=== PATIENT | male | born 1945 | race African-American/Black ===

== ENCOUNTER 2018-12-20 10:15 | Outpatient (RCR) | payer MEDICARE | END 2018-12-22 | LOC: ST 10:15 | PROVIDERS: ATTEND Emergency Medicine | DX: R47.1 Dysarthria and anarthria (principal); F17.200 Nicotine dependence, unspecified, uncomplicated | CPT/HCPCS: 92523 ==

== ENCOUNTER → 2019-01-11 | Outpatient (CLI) | payer MEDICARE ==
--- NOTE | 2019-01-12 11:15 | Diagnostic Imaging Report ---
EXAM: Modified barium swallow with Speech Pathologist INDICATION: ^[id number] ^[id number] ^DYSPHAGIA COMPARISON: None available. RADIATION DOSE: Fluoroscopy Time: 2.5 min Dose (Kerma) Area Product: 1.5 Gycm2 Air Kerma (AK) value has been reviewed. It is below the limits set by the Radiation Protocol Committee (RPC) committee. FINDINGS: See impression IMPRESSION: No evidence of penetration or aspiration. Please see speech pathology report for detailed description and recommendations. Signed by: Dr. Carlos Mascorro M.D. on 01/12/2019 11:11 AM
== END ==
LOC: DX 12:12
PROVIDERS: ATTEND Emergency Medicine
DX: I69.891 Dysphagia following other cerebrovascular disease (principal); R13.11 Dysphagia, oral phase
CPT/HCPCS: 74230

== ENCOUNTER 2019-01-18 09:45 | Outpatient (RCR) | payer MEDICARE ==
--- NOTE | 2018-12-26 11:13 | NUR ---
ST NOTE: PT called and cx apt, will phone pt to reschedule next session.
--- NOTE | 2019-01-16 09:41 | NUR ---
ST NOTE: Pt called in sick, next apt 01/18/19.
[~2019-01-18 09:45] MED LIST: BELLADONNA/OPIUM 30 MG SUPP RC ONE
--- NOTE | 2019-01-18 15:00 | NUR ---
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 Pt has participated in three sessions of therapy. Number of sessions limited due to change of insurance. Short term goals and progress follow: 1.Pt will perform diodochokinetic exercises 25 times in 15 secondspt completed an average of 6 sequences in 15 seconds (average of 6 last session). 2.Pt will participate in speech motor exercises with 90% accuracy pt completed motor speech exercises levels 1-4, which included CV, CVCV, and VCV syllables, voiced and unvoiced consonants, with 70% accuracy. Pt completed level 5 exercises, which included 2 syllable VCCV, voiced and unvoiced consonants, with 50% accuracy (pt unable to progress past level 3 last session). 3.Pt will use dysarthria strategies in session and at home with independencereviewed SLEW strategies. Pt required minimal cueing to use strategies in structured conversation. 4.Pt will complete oral motor exercises to improve labial and lingual strength and coordination with independencept reported completion of home exercise program. New exercises for labial rounding and strength of buccinators introduced. 5.Pt will complete divergent and convergent tasks with 80% accuracypt completed divergent tasks with 60% accuracy. 6.Pt will read words and phrases with simple and complex blends with 95% accuracynot addressed. 7.Pt will participate in continued dxt/txnot addressed. Impression: Pts deficits persist, but with practice improvements are noted in oral motor coordination. Oral strength appears to be improving. Pt completed all tasks eagerly and showed high level of motivation to improve his communication skills. Education completed as indicated, with patient indicating understanding. Recommendation: Recommend continued speech and language therapy 2x/week X 4 weeks. Blow Down Operator Goal: Maximize functional communication skills for home and social environments. Short Term Goals: Continue goals 1-7 as listed above. Ella Ramos M.A. [facility]-PRINCIPAL CONSULTING ENGINEER Date of Session: 01/18/19 Speech and Language Therapy X 65 minutes VALE NOMS Motor Speech Level 4
== END 2019-01-22 ==
LOC: PT 09:45
PROVIDERS: ATTEND Emergency Medicine
DX: R47.1 Dysarthria and anarthria (principal); F17.200 Nicotine dependence, unspecified, uncomplicated

== ENCOUNTER 2019-02-08 09:33 | Outpatient (RCR) | payer MEDICARE ==
--- NOTE | 2019-02-03 11:37 | NUR ---
ST Note: Pt cancelled appointment due to lack of transportation. He plans to attend his next scheduled therapy appointment.
[2019-02-15] MEDS ORDERED: BENICAR20 MG PO (10:21)
[2019-02-15] MEDS ORDERED: CYPROHEPTADINE H4 MG (10:21)
[2019-02-15] MEDS ORDERED: ABILIFY5 MG PO (10:21)
[2019-02-16] MEDS ORDERED: PRAVASTATIN SOD40 MG PO (11:00)
[2019-02-16] MEDS ORDERED: NORVASC10 MG PO (11:00)
[2019-02-17] MEDS ORDERED: COREG12.5 MG PO (13:30)
[2019-02-17] MEDS ORDERED: ASPIRIN EC81 MG PO (13:31)
== END 2019-02-21 ==
LOC: PT 09:33
PROVIDERS: ATTEND Emergency Medicine
DX: R47.1 Dysarthria and anarthria (principal); F17.200 Nicotine dependence, unspecified, uncomplicated

== ENCOUNTER 2019-02-15 09:50 | Inpatient (IN) | payer MEDICARE ==
[2019-02-15] VITALS (30 sets, daily range): BP systolic 147–239; BP diastolic 81–121
[~2019-02-15] VITALS: Ht 175.3 cm; Wt 65.1 kg
--- OUTSIDE RECORDS SUMMARY | 2019-02-15 09:52 | XMS REPORT ---
[facility] Address Unknown Phone Unavailable Care Team Providers Care Processor Solid Propellant Name Role Phone ASHLEY MONSON Unavailable Unavailable Problems This patient has no known problems. Allergies, Adverse Reactions, Alerts This patient has no known allergies or adverse reactions. Medications This patient has no known medications. Results Test Description Test Time Test Comments Text Results Atomic Results Result Comments MODIFIED BA. SWALLOW 2019-01-12 11:11:00 [place] [address] Patient Name: FARHAN GONZALEZ MR #: [id number] : 1945 Age/Sex: 73/M Req #: [id number] [facility] Physician: Ordered by: ASHLEY MONSON MD Report #: [id number] Location: DX Room/Bed: Procedure: [id number] DX/MODIFIED BA. SWALLOW Exam Date: 01/11/19 Exam Time: 1145 REPORT STATUS: Signed EXAM: Modified barium swallow with Speech Pathologist INDICATION: [id number] DYSPHAGIA COMPARISON: None available. RADIATION DOSE: Fluoroscopy Time: 2.5 min Dose (Kerma) Area Product: 1.5 Gycm2 Air Kerma (AK) value has been reviewed. It is below the limits set by the Radiation Protocol Committee (RPC) committee. FINDINGS: See impression IMPRESSION: No evidence of penetration or aspiration. Please see speech pathology report for detailed description and recommendations. Signed by: Dr. Liam Rodrigez M.D. on 01/12/2019 11:11 AM Dictated By: LIAM RODRIGEZ MD 1111 Transcribed By: COSME on 01/12/19 1111 COPY TO: ASHLEY MONSON MD
--- NOTE | 2019-02-15 10:15 | NUR ---
MANUAL BP 232/128 LUE.
[2019-02-15] MEDS ORDERED: CYPROHEPTADINE H4 MG (10:21)
[2019-02-15] MEDS ORDERED: BENICAR20 MG PO (10:21)
[2019-02-15] MEDS ORDERED: ABILIFY5 MG PO (10:21)
[2019-02-15] MEDS ORDERED: SODIUM CHLORIDE 0.9% 1000ML 1,000 ML IV STA (10:23)
[2019-02-15] MEDS ORDERED: NITROGLYCERIN 2% OINT 1 GM PKT ONE (10:43)
[2019-02-15] MEDS ORDERED: NITROGLYCERIN 2% OINT 1 GM PKT TOP ONE (10:45)
[2019-02-15] MEDS ORDERED: ASPIRIN 325 MG TAB PO ONE (10:45)
--- NOTE | 2019-02-15 10:50 | NUR ---
DR. DUGGAN AT BEDSIDE FOR PT EVAL AT THIS TIME.
[2019-02-15 10:55] LABS: BASOPHILS # (AUTO) 0.1 (0.0-0.1); EOSINOPHILS # (AUTO) 0.3 (0.0-0.4); EOSINOPHILS % 4.2 % (0.0-6.0); HEMATOCRIT 42.2 % (38.2-49.6); HEMOGLOBIN 14.1 g/dL (14.0-18.0); LYMPHOCYTES % 32.7 % (18.0-39.1); MEAN CORPUSCULAR HEMOGLOBIN 31.2 pg (28-32); MEAN CORPUSCULAR HGB CONC 33.4 g/dL (31-35); MEAN CORPUSCULAR VOLUME 93.4 fL (81-99); MONOCYTES # (AUTO) 0.8 (0.2-0.8); MONOCYTES % 13.9 % (4.4-11.3); NEUTROPHILS # (AUTO) 2.9 (2.1-6.9); NEUTROPHILS % 47.9 % (38.7-80.0); PLATELET COUNT 202 x10e3/uL (140-360); RED BLOOD COUNT 4.52 x10e6/uL (4.3-5.7); RED CELL DISTRIBUTION WIDTH 14.8 % (11.7-14.4)
--- NOTE | 2019-02-15 11:00 | NUR ---
DR. DUGGAN AT BEDSIDE EXPLAINING RISKS AND BENEFITS OF PERMANENT PACEMAKER PLACEMENT, PT VERBALIZING UNDERSTANDING. PT ALLOWED TIME FOR QUESTIONS AND DR. DUGGAN RESPONSIVE TO PT. RECEIVED ORDERS TO OBTAIN INFORMED CONSENT.
[2019-02-15 11:03] LABS: INR 0.94; PROTHROMBIN TIME 13.1 seconds (11.9-14.5)
[2019-02-15 11:10] LABS: ALBUMIN 3.2 g/dL (3.5-5.0); ALBUMIN/GLOBULIN RATIO 0.7 (0.8-2.0); ANION GAP 17.3 mmol/L (8-16); CALCIUM 9.9 mg/dL (8.4-10.2); CREATININE, SERUM 1.48 mg/dL (0.72-1.25); MAGNESIUM 1.2 MG/DL (1.3-2.1); POTASSIUM 4.3 mmol/L (3.5-5.1)
--- NOTE | 2019-02-15 11:11 | NUR ---
INFORMED CONSENT FOR INSERTION OF PERMANENT PACEMAKER OBTAINED AT THIS TIME, PT ACKNOWLEDGES NEED FOR PROCEDURE. WILL CONTINUE TO MONITOR.
[2019-02-15] MEDS ORDERED: ASPIRIN 81 MG CHEW TAB PO ONE (11:15)
[2019-02-15 11:17] LABS: CREATINE KINASE MB 2.7 ng/mL (0-5.0)
[2019-02-15] MEDS ORDERED: BACITRACIN 50,000 UNIT VIAL ONE (11:33)
[2019-02-15] MEDS ORDERED: VANCOMYCIN 1GM/NS 250 ML 250 ML ONE (11:33)
[2019-02-15] MEDS ORDERED: LIDOCAINE 1% W/EPINEPHRINE 20 ML VIAL ONE (11:33)
[2019-02-15] MEDS ORDERED: SODIUM CHLORIDE 0.9% 1000ML 3,000 ML ONE (11:34)
--- NOTE | 2019-02-15 11:52 | Diagnostic Imaging Report ---
EXAMINATION: CHEST SINGLE (PORTABLE) INDICATION: Bradycardia. COMPARISON: None FINDINGS: TUBES and LINES: None. LUNGS: Hyperinflated lungs. There is no evidence of pneumonia or pulmonary edema. PLEURA: No pleural effusion or pneumothorax. HEART AND MEDIASTINUM: The cardiomediastinal silhouette is unremarkable. There are atherosclerotic calcifications within the aorta. BONES AND SOFT TISSUES: No acute osseous abnormality. UPPER ABDOMEN: No free air under the diaphragm. IMPRESSION: No acute radiographic abnormality. Hyperinflated lungs, which may represent emphysema. Signed by: Dr. Bassam Hernandez MD on 02/15/2019 11:48 AM
--- NOTE | 2019-02-15 12:15 | NUR ---
IMAGING ASSISTANT STAFF AT BEDSIDE AT THIS TIME.
[2019-02-15 12:25] LABS: CLARITY,URINE CLEAR (CLEAR); COLOR,URINE YELLOW (YELLOW)
[2019-02-15 12:26] LABS: BILIRUBIN,URINE NEGATIVE (NEGATIVE); KETONES,URINE NEGATIVE (NEGATIVE); LEUKOCYTE ESTERASE ,URINE NEGATIVE (NEGATIVE); NITRITE,URINE NEGATIVE (NEGATIVE); PROTEIN,URINE DIPSTICK 3+ (NEGATIVE); URINE UROBILINOGEN 0.2 mg/dL (0.2 - 1)
[2019-02-15 12:27] LABS: BACTERIA,URINE FEW /HPF; EPITHELIAL CELLS,URINE FEW /LPF; WBC,URINE (MAN) 0-5 /HPF (0-5)
[2019-02-15] MEDS ORDERED: MIDAZOLAM HCL 2 MG/2 ML VIAL ONE (12:56)
[2019-02-15] MEDS ORDERED: FENTANYL CITRATE/PF 100MCG/2 ML INJ ONE (12:56)
[2019-02-15] MEDS ORDERED: HYDRALAZINE HCL 20 MG/ML VIAL ONE (13:19)
--- NOTE | 2019-02-15 13:35 | NUR ---
informed dr tomlinson of BP of 236/106 post hyrdralazine. Pt to ICU for blood pressure management post PPM - cgf
--- NOTE | 2019-02-15 13:55 | NUR ---
Report provided to liam GALLEGOS, review of procedural findings and medications given. Patient drowsy, easily aroused. maintains airway and room air saturations of 94-96%. No gross issues of pain, pallor or dysrhythmia. IV site patent with Vancomycin abx infusing 166ml per dial-flow to left forearm 20g. RIJ 18g flushed and presents healthy. patient hemodynamically stable with hemostasis left upper chest dressing CDI w/o s/s of bleeding, pressure dressing present. patient transferred to [facility] assist w/o incident. Overall skin integrity remains intact. left arm immobilizer applied to left arm transported to ICU 193 on monitor - cgf procedure: ST Reg dual lead PPM left upper chest w/ venogram Sheath puller: NA Meds Given Intra-Procedure Sedatives Versed - 2 mg Fentanyl - 50 mcg Fluids Input - 200 ml Output - dtv Contrast Isovue 370 - 10ml Other Meds Vancomycin 1gram IVPB
[2019-02-15] MEDS: AMLODIPINE BESYLATE 5 MG TAB PO SCH (15:48)
[2019-02-15] MEDS: HYDRALAZINE HCL 20 MG/ML VIAL IV PRN ×2 (15:49→21:53)
[2019-02-15] MEDS ORDERED: OLMESARTAN MEDOXOMIL 5 MG TABLET PO SCH (16:00)
[2019-02-15] MEDS ORDERED: PNEUMOCOCCAL VACCINE POLYVALENT 23 MCG/0.5 ML VIAL IM ONE (16:30)
[2019-02-15] MEDS: OLMESARTAN 20 MG TAB PO SCH (16:38)
--- NOTE | 2019-02-15 19:22 | History and Physical ---
REASON FOR CONSULTATION: Complete heart block. HISTORY: A 73-year-old gentleman, poor historian, today he claimed that he is not feeling well for three weeks with chest tightness, chest pressure, dizziness, weakness, and his legs cannot hold him. He went to see his doctor. His blood pressure was systolic 200. His heart rate in the 30s. His EKG showed complete heart block. He refused to come by ambulance. He drove himself here. He was seen by ER physician. Urgent cardiac consultation is obtained. I visited with the patient who is really a poor historian. He has known severe hypertension of many years duration. He said he had a stroke last year, which affected his right side. He does have asymmetry of his face. He had reasonable recovery. He lives by himself. He is a heavy smoker and alcohol drinker. He takes his medication as described. He is followed by Dr. Curry, and he is on several medications for his mood disorder. He does not like to give more information. Regarding his chest pain, it seems to be atypical, going on for three weeks, very vague. It is more pressure and weakness and tightness. There is some orthopnea but no paroxysmal nocturnal dyspnea. There is no syncope or presyncope. REVIEW OF SYSTEMS: CARDIAC: As per above. PULMONARY: No cough. No hemoptysis. GI: No hematemesis. No melena. : No hematuria, no dysuria. MUSCULOSKELETAL: Aches and pain, weakness of the legs. NEUROLOGICAL: Status post prior CVA. SOCIAL HISTORY: He lives by himself. He is a smoker, and he is alcohol drinker. He does not have any family support. HOME MEDICATIONS: Benicar 20 mg a day. Abilify 5 mg twice a day. Cyproheptadine 4 mg at bedtime. ALLERGIES: NONE. FAMILY HISTORY: Noncontributory. PHYSICAL EXAMINATION: VITAL SIGNS: Height of 6 feet 2 inches, weight of 150 pounds, blood pressure 200/100, heart rate of 30, respiratory rate of 20. HEENT: Asymmetry of the face is noted. NECK: No elevation of jugular venous pulsation. CHEST: Bilateral coarse crackles. HEART: Normal first and second heart sounds. Ejection systolic murmur. ABDOMEN: Soft. There is good bowel sounds. No organomegaly. EXTREMITIES: No signs, no clubbing, no edema NEUROLOGIC: Symmetry of the face. Subparagraph. LABORATORY DATA: BUN is elevated at 28, creatinine of 1.5. Sodium of 134, potassium of 4.3, hemoglobin of 14.1, hematocrit 42%, white blood cell count of 6000. EKG showing complete heart block with a rate in the 30s. IMPRESSION AND PLAN: 1. Advanced complete heart block. 2. Severe hypertension. 3. Prior cerebrovascular accident. 4. Some form of psychiatric or mood problem. We discussed the case with the patient, explaining for him that he need a pacemaker, and explained the procedure. Dr. Rao and Dr. Pham will be doing it shortly. We will get an echocardiogram. We will check his thyroid function tests, which are not set as checked. His cardiac enzymes are normal. We will follow patient's progression with you and would like to thank you for you the kind referral. Thank you very much for dictation. The patient attended the emergency room, evaluated, total care time of more than 70 minutes, plus patient will be seen later on for followup. MD PAUL Malin/REESE /[id number]
[2019-02-15 20:55] LABS: CREATINE KINASE MB 2.9 ng/mL (0-5.0)
--- NOTE | 2019-02-15 21:00 | NUR ---
Called Dr. Stef Kingsley regarding patient's BP 206/93. No new orders at this time. Patient has had elevated BP for several months and Dr. Kingsley is aware and does not want to drop his BP too quickly. Order obtained to change attending to Dr. Cruz.
[2019-02-15] MEDS ORDERED: GUAIFENESIN 200 MG/10 ML UDC PO PRN (22:00)
[2019-02-16] VITALS (36 sets, daily range): BP systolic 130–199; BP diastolic 78–142
--- NOTE | 2019-02-16 00:58 | History and Physical ---
PRIMARY CARE DOCTOR: Dr. Perfecto Curry. CHIEF COMPLAINT: Bradycardia. HISTORY OF PRESENT ILLNESS: Mr. Villeda is a pleasant 73-year-old gentleman with bradycardia. The patient basically denies any dizziness. He denies any shortness of breath. No changes in his ability to exert recently. He went in for routine appointment, he says to see his primary care doctor. The patient was noted to have bradycardia. It was relegated as an incidental finding. Heart rate was 32 beats per minute. The patient was seen to have a third-degree AV block on EKG. Pulse oximeter was 94%. Blood pressure furthermore was 200s range. At this point, it was elected to send him to emergency room for critical assessment. He came to the emergency room, where our EKGs at [facility] confirm continue presence of third-degree heart block. The patient was rapidly assessed by Cardiology and was referred to EP Service. Due to the complete heart block, a permanent pacemaker implant was performed. The patient had this performed in the left chest wall area. He was then sent to the ICU for further assessment. Tip Inserter, Dr. Kingsley. EP doctor is Dr. Langford. PAST MEDICAL HISTORY: Hypertension, CVA in 2018 with expressive aphasia. MEDICATIONS: Medication list per the chart record. ALLERGIES: NO LISTED DRUG ALLERGY. SOCIAL HISTORY: No alcohol. No drugs. He smokes tobacco from age 20 to 73, one pack per day. Active. 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 FAMILY HISTORY: Noncontributory to this. REVIEW OF SYSTEMS: Cannot get reliably, as the patient has expressive aphasia and limited speech. OBJECTIVE: VITAL SIGNS: Afebrile, vital signs noted per the chart record. GENERAL: In no acute distress, alert, calm in bed. HEENT: Normocephalic, atraumatic. NECK: Supple. Throat midline. LUNGS: Bilateral air entry, decreased breath sounds mildly, but mostly unremarkable. CARDIOVASCULAR: S1, S2. No murmurs, rubs, or gallops. ABDOMINAL EXAM: Soft, nontender. EXTREMITIES: No clubbing, no cyanosis. There is no edema. INTEGUMENT: No rash. No purpura. LABORATORY DATA: 4.3 potassium, 20 BUN, 1.5 creatinine. 6 white count, 42 hematocrit, and 202 platelets. LFTs noted unremarkable per record. Coagulation panel is unremarkable. IMPRESSION AND PLAN: 1. Third-degree heart block, emergent. 2. Postoperative #2 stay, status post emergent permanent pacemaker implantation. 3. Hypertension with urgency. 4. History of cerebrovascular accident. 5. Secondary debility including aphasia and mild left-sided weakness. 6. Chronic smoker, active. 7. Mild creatinine elevation, possible chronic kidney disease versus acute kidney injury versus other. 8. Repeat electrolytes and creatinine tomorrow. Consideration to ensure the kidneys are stabilized. Slow improvement of blood pressure to control. Continue postoperative #2 assessment per jig mill operator. Minocycline and pain medicine as needed for postoperative care. Continue initial followup in ICU for now. Tomorrow, we intend to have him mobilized and ensure he is able to walk easily despite having the new pacemaker in the left shoulder. Consideration for discharge can be made if he stabilizes further and is able to mobilize outside of the hospital. Thank you very much, Dr. Curry for allowing me to participate in care of Mr. Villeda. Do not hesitate to contact me if I can help in any way. MD GARO Zamarripa/REESE /[id number]
[2019-02-16 05:15] LABS: BASOPHILS % 0.5 % (0.0-1.0); EOSINOPHILS # (AUTO) 0.1 (0.0-0.4); EOSINOPHILS % 0.9 % (0.0-6.0); HEMATOCRIT 44.8 % (38.2-49.6); LYMPHOCYTES # (AUTO) 1.2 (1.0-3.2); LYMPHOCYTES % 14.9 % (18.0-39.1); MEAN CORPUSCULAR HEMOGLOBIN 30.9 pg (28-32); MEAN CORPUSCULAR HGB CONC 33.5 g/dL (31-35); MEAN CORPUSCULAR VOLUME 92.4 fL (81-99); MONOCYTES # (AUTO) 0.7 (0.2-0.8); MONOCYTES % 8.5 % (4.4-11.3); NEUTROPHILS # (AUTO) 5.8 (2.1-6.9); NEUTROPHILS % 74.8 % (38.7-80.0); PLATELET COUNT 196 x10e3/uL (140-360); RED BLOOD COUNT 4.85 x10e6/uL (4.3-5.7); RED CELL DISTRIBUTION WIDTH 15.1 % (11.7-14.4)
[2019-02-16 05:39] LABS: CREATINE KINASE MB 3.8 ng/mL (0-5.0)
[2019-02-16 05:59] LABS: ALANINE AMINOTRANSFERASE 12 IU/L (0-55); ALBUMIN 3.2 g/dL (3.5-5.0); ALBUMIN/GLOBULIN RATIO 0.7 (0.8-2.0); ALKALINE PHOSPHATASE 87 IU/L (40-150); BLOOD UREA NITROGEN 18 mg/dL (7-26); BUN/CREATININE RATIO 15 (6-25); CALCIUM 9.9 mg/dL (8.4-10.2); CARBON DIOXIDE 23 mmol/L (22-29); CHLORIDE 95 mmol/L (98-107); CHOL/HDL RATIO 2.5 (3.9-4.7); CHOLESTEROL 216 MD/DL (0-199); CREATININE, SERUM 1.22 mg/dL (0.72-1.25); EST GLOMERULAR FILTRATION RATE > 60 ML/MIN (60-); GLUCOSE 79 mg/dL (74-118); HDL CHOLESTEROL 85 MG/DL (40-60); LDL CHOLESTEROL 114 MG/DL (60-130); SODIUM 130 mmol/L (136-145); TRIGLYCERIDES 83 MG/DL (0-149)
--- NOTE | 2019-02-16 08:15 | NUR ---
ASSESSMENT: No spiritual/emotional concerns expressed Creel Clerk responded to consult request. Pt states he is "okay" and is complimentary of staff. Intervention: Provided pastoral presence and hospitality. Provided information on how to reach director of special education, if needed. Outcome: Pt expressed appreciation for visit. Followed up with RN. Will follow as able. TARAH HYDE Creel Clerk Spiritual Care Department O: [phone] Pager: [phone] ([phone] number calling from)
[2019-02-16] MEDS: OLMESARTAN 20 MG TAB PO SCH (08:55)
[2019-02-16] MEDS: AMLODIPINE BESYLATE 5 MG TAB PO SCH ×2 (08:55→16:15)
[2019-02-16] MEDS: CYPROHEPTADINE HCL 4 MG TAB PO SCH ×2 (08:56→17:12)
[2019-02-16] MEDS ORDERED: ASPIRIN 81 MG ENTERIC COATED PO SCH (09:00)
[2019-02-16] MEDS ORDERED: NORVASC10 MG PO (11:00)
[2019-02-16] MEDS ORDERED: PRAVASTATIN SOD40 MG PO (11:00)
--- NOTE | 2019-02-16 13:36 | Progress Note ---
DATE: 02/16/2019 Pulmonary Medicine Progress Note SUBJECTIVE: Mr. Villeda was seen and examined at bedside. He continues to have improvement. Reportedly, the pacemaker device was interrogated with good result. He had more cardiovascular evaluation with ultrasonography. The patient still has not walked yet. He is tolerating his diet so far. REVIEW OF SYSTEMS: No bleeding, no headaches. OBJECTIVE: VITAL SIGNS: Afebrile, vital signs noted per chart record. GENERAL: In no acute distress, alert and calm. HEENT: Normocephalic, atraumatic. NECK: Supple. Throat midline. LUNGS: Bilateral air entry with small rhonchi. CARDIOVASCULAR: S1, S2. No murmurs, rubs, or gallops. ABDOMEN: Soft, nontender. EXTREMITIES: No clubbing, no cyanosis. There is no edema. INTEGUMENT: No rash, no purpura. LABS: BUN 18, creatinine 0.2. BNP 603. Magnesium level is 1.3. Potassium 4.0, sodium 130. IMPRESSION: 1. Third-degree heart block. 2. Postoperative state, status post pacemaker insertion. 3. Hypertension with emergency with chest pain, now resolved. 4. History of cerebrovascular accident, expressive aphasia and mild left-sided hemiparesis. PLAN: Get PT to walk the patient. We appreciate device interrogation. We will let him leave the ICU. Continue blood pressure medicines for slow decrease this is better. Follow up echo and carotid results. If he continues to do well, he may be possibly for discharge tomorrow. MD GARO Zamarripa/REESE /[id number]
--- NOTE | 2019-02-16 13:53 | NUR ---
Patient transferred to unit from ICU. Patient arrived via wheelchair. Patient is post op day 1 pacemaker placement. Dressing to left chest wall clean and dry. Left arm in a sling. No c/o pain. No s/s of distress noted
[2019-02-16 14:03] LABS: CREATINE KINASE MB 3.4 ng/mL (0-5.0)
--- NOTE | 2019-02-16 14:18 | NUR ---
PATIENT TRANSFERRED TO ROOM 107 IN WHEELCHAIR WITH ALL OF HIS BELONGINGS. NURSING REPORT GIVEN TO AUGUSTINE GALLEGOS. PATIENT ALERT, DENIES PAIN. VSS.
[2019-02-16] MEDS ORDERED: PNEUMOCOCCAL VACCINE POLYVALENT 23 MCG/0.5 ML VIAL ONE (16:10)
[2019-02-16] MEDS: ASPIRIN 81 MG ENTERIC COATED PO SCH (16:15)
[2019-02-16] MEDS: HYDRALAZINE HCL 20 MG/ML VIAL IV PRN ×2 (16:15→20:55)
--- NOTE | 2019-02-16 17:02 | NUR ---
Patient received pneumonia vaccine at this time. immunization given in right deltoid
--- NOTE | 2019-02-17 00:20 | NUR ---
SPOKE TO DR. DUGGAN REGARDING PT C/O UNABLE TO SLEEP. NEW ORDER RCV FOR BENADRYL PRN PO.
[2019-02-17] MEDS ORDERED: DIPHENHYDRAMINE HCL 25 MG CAP PO PRN (00:30)
[2019-02-17 00:50] VITALS: BP 157/87
[2019-02-17 04:33] VITALS: BP 117/71
[2019-02-17 08:23] VITALS: BP 184/82
--- NOTE | 2019-02-17 09:15 | NUR ---
MD DUGGAN INTO SEE PT, DISCUSSED POC
--- NOTE | 2019-02-17 09:16 | NUR ---
CASE MANAGEMENT ASSESSMENT Gas Engine Operator Generators to bedside to discuss plan of care with patient/family. CM/SW role and care transitions discussed. Anticipated discharge plan discussed along with duration of care. CM/SW discussed patients right to make decisions in care. CM/SW work hours given. Patient lives: alone Admit/Transfer: thru ED Hospital/ER visits since last admit: 0 POA/Emergency contact: sister Eda Genao [phone] Current/Previous Home Health: none PCP/Follow-up Care: Dr. Curry - PCP; CM advised pt to follow up with one of his MDs within a week of discharge. Pt verbalized understanding Current/Previous DME: none Medications (referring to index hospitalization or the first time you were in the hospital) a. Were changes made in your medications when you were in the hospital on [date of index hospitalization]? n/a b. Did you understand the changes? n/a c. Were you able to obtain your new medications right away? n/a d. Were you able to take your medications like the doctor wanted you to? n/a e. Did the hospital give you an accurate, easy to understand list of medications when you left? n/a Scale of 1-10 how comfortable does patient feel with disease management in outpatient settin Other Services: states he gets transportation thru insurance Employment Status: retired Areas of Concerns: complete heart block, HTN, recent PM placement Referral Needs: may benefit from home health Education Needs: medical management, compliance, post PM instructions IMM/WYMAN given and signed (if applicable): IMM letter delivered and explained to pt. He verbalized understanding. Signed copy placed in chart. Copy to pt. Goal for discharge: home CM/SW left business card at the bedside with contact information. Name and number was also written on the patients whiteboard. Patient verbalized understanding of discussion. CM will follow-up with ongoing discharge and transition of care needs.
[2019-02-17] MEDS ORDERED: CARVEDILOL 12.5 MG TAB PO SCH (09:30)
[2019-02-17] MEDS: CYPROHEPTADINE HCL 4 MG TAB PO SCH (09:45)
[2019-02-17] MEDS: AMLODIPINE BESYLATE 5 MG TAB PO SCH (09:45)
[2019-02-17] MEDS: OLMESARTAN 20 MG TAB PO SCH (09:45)
[2019-02-17] MEDS: ASPIRIN 81 MG ENTERIC COATED PO SCH (09:45)
[2019-02-17] MEDS ORDERED: COREG12.5 MG PO (13:30)
[2019-02-17] MEDS ORDERED: ASPIRIN EC81 MG PO (13:31)
--- NOTE | 2019-02-17 13:58 | NUR ---
Nutrition Screen Note RD Recommendation for Physician: -Continue current diet. -Consider STATISTICAL FINANCIAL ANALYST recommendation; pt has had modified barium swallow in the past d/t dysphasia. -Ensure Enlive BID Plan of Care: RD following, monitoring for tolerance and adequacy Nutrition reason for involvement: Nutrition Risk Trigger-MST score of 2 Primary Diagnose(s): ACS PMH: Hypertension, CVA in 2018 with expressive aphasia. Ht: 69 in Wt: 143 lb BMI: 21.1kg/m2 IBW: [address] Assessment: (02/17) 73 YOM admitted for ACS. Pt denied a decreased intake of food at home as well as any unintentional weight loss that he has seen. Pt reported he would like to gain weight and stated he consumes Ensure at home, recommended this for pt in the hospital. Spoke to nurse about supplement initiation. There are no past weights in EMR. Within EMR- pt has had modified barium swallow (01/11) in the past-recommend STATISTICAL FINANCIAL ANALYST consult to ensure pt is consuming the correct texture. Pt did deny chewing or swallowing issues when asked. Pt has no c/o N/V/C/D. Pt had no other concerns or questions. Chart reviewed. Labs and meds reviewed. Will continue to monitor. Current Diet: cardiac Malnutrition Evaluation (02/17) The patient does not meet criteria for a specified degree of malnutrition at this time. Will re-evaluate at follow-up as appropriate. Diet Education Needs Assessment: Diet education not indicated. Nutrition Care Level: mod Signed: Nicolle Anderson RD, LD
--- NOTE | 2019-02-17 14:00 | NUR ---
MD DUPREE INTO SEE PT, DISCUSSED POC,
--- NOTE | 2019-02-17 16:53 | NUR ---
DISCHARGE INSTRUCTIONS REVIEWED WITH PT, PT VERBALIZED UNDERSTANDING, WHEELED OF UNIT FOR LYFT PICKUP PER [employer]IST[employer] COMPANY TO TRANSFER PT HOME, NO CHANGE IN CONDITION
[2019-02-17 16:57] VITALS: BP 169/90
--- NOTE | 2019-02-17 23:07 | Progress Note ---
DATE: 02/17/2019 Pulmonary Medicine Progress Note SUBJECTIVE: Mr. Villeda was seen and examined at bedside. He continues with steady progress. He walked with physical therapy. independent. I discussed with Cardiology. The patient will be allowed for discharge. MD GARO Zamarripa/REESE /[id number]
--- NOTE | 2019-02-18 06:58 | Discharge Summary ---
PRIMARY CARE DOCTOR: Perfecto Curry MD PRIMARY DIAGNOSES: 1. Third-degree heart block. 2. Critical bradycardia, symptomatic. 3. Hypertensive emergency. SECONDARY DIAGNOSES: Include stroke, dyslipidemia, hypertension, and gastroesophageal reflux disease. HOSPITAL COURSE: Mr. Villeda is a pleasant 73-year-old gentleman, who was referred from his primary care doctor's office due to chest tightness and critical bradycardia with heart rate of 32 beats per minute. EKG showed third-degree heart block. The patient came emergently to the [facility] Emergency Room. Emergent Cardiology consult was made as well as EP service. The patient went emergently for a permanent pacemaker device. The patient did not have high troponins. He went for carotid ultrasound and echo, both of which on preliminary report are unremarkable with final report pending. The patient was seen by physical therapy and was been independent without assistive device needs and he was allowed for outpatient followup at discharge. MEDICATIONS ON DISCHARGE: Per medication administration/discharge reconciliation records, please see. DIET: Low-salt diet. ACTIVITY: As tolerated, left arm cautions due to pacemaker device placement. FOLLOWUP: Dr. Curry in one week, Dr. Langford of EP service, and Dr. Kingsley of Cardiology. Greater than 30 minutes spent in coordinating discharge. MD GARO Zamarripa/REESE /[id number]
--- NOTE | 2019-02-20 20:50 | Operative Report ---
DATE OF PROCEDURE: 02/15/2019 SURGEON: Veronique Langford MD PREPROCEDURAL DIAGNOSIS: Third-degree AV block with no reversible etiology. POSTPROCEDURAL DIAGNOSIS: Third-degree AV block with no reversible etiology. PROCEDURES PERFORMED: 1. Left subclavian venogram. 2. [employer] dual chamber pacemaker insertion in the left pectoral region. PROCEDURE IN DETAIL: Mr. Villeda was brought to the botany laboratory assistant here at [facility] in the fasting and nonsedated state. The left pectoral region was prepped and draped in a sterile manner. Left subclavian venogram was performed that showed a patent left subclavian vein. The pocket was formed in the left pectoral region with a combination of electrocautery, blunt, and sharp dissection. Access to the axillary vein was made through the pocket and 2 guidewires placed in this vein with tips in the IVC. A 6-Nepali sheath was placed over the first guidewire through which a [employer] pacing lead model #2088TC, length 58 cm, serial #[id number] was implanted in the right ventricular apex without complications. Adequate pacing and sensing parameters were observed and the sheath was peeled away and lead secured to the underlying fascia with 0-silk. The 6-Nepali sheath was then placed over the second guidewire through which a [employer] pacing lead model #2088TC, length 52 cm, serial #[id number] was implanted in the right atrial appendage without complications. Adequate pacing and sensing parameters were observed and the sheath was peeled away and lead secured to the underlying fascia with 0-silk. Pocket was irrigated with antibiotic containing normal saline and the leads secured to the [employer] pacemaker generator model #[id number], serial #[id number]. The generator and leads were then placed in the pocket and secured to the underlying fascia with 0-silk. The pocket was closed in 3 layers with 2-0 Vicryl for the deeper subcutaneous layers and 4-0 Vicryl for the skin. Dermabond was placed for additional skin approximation. DEVICE DATA: Right ventricular lead has R waves of 10.2 millivolts with threshold of 0.5 volts and pulse width of 0.5 milliseconds and pacing impedance of 780 ohms. The right atrial lead has P waves of 1.8 millivolts and threshold of 0.5 volts and pulse width of 0.5 milliseconds and pacing impedance of 490 ohms. Of note, moderate sedation was administered for the procedure. Total moderate sedation time was 30 minutes. Total Versed dosage was 3 mg and fentanyl dosage was 75 mcg. Pulse oximeter and hemodynamic monitoring were performed throughout the procedure. The patient tolerated the procedure well. CONCLUSION: 1. Successful implantation of a [employer] dual chamber pacemaker in the left pectoral region. 2. Moderate sedation was administered. 3. No complications. MD SANTI Cedeno/MODL /[id number]
== END 2019-02-17 16:51 | disposition home or self-care (01) | DRG 242 ==
LOC: ER 09:50 → ERHOLD 11:15 → UNDOADMIN 11:15 → CATH LAB 12:37 → ICU 14:22 → MED/SURG 02-16 13:57
PROVIDERS: ADMIT Internal Medicine Cardiovascular Disease; ATTEND Internal Medicine Cardiovascular Disease
PROC: 0JH606Z Insertion of Pacemaker, Dual Chamber into Chest Subcutaneous Tissue and Fascia, Open Approach (ICD-10-PCS; principal; 2019-02-15)
PROC: 02H63JZ Insertion of Pacemaker Lead into Right Atrium, Percutaneous Approach (ICD-10-PCS; 2019-02-15)
PROC: 02HK3JZ Insertion of Pacemaker Lead into Right Ventricle, Percutaneous Approach (ICD-10-PCS; 2019-02-15)
PROC: 3E0234Z Introduction of Serum, Toxoid and Vaccine into Muscle, Percutaneous Approach (ICD-10-PCS; 2019-02-16)
DX: I44.2 Atrioventricular block, complete (principal); I50.31 Acute diastolic (congestive) heart failure; I69.354 Hemiplegia and hemiparesis following cerebral infarction affecting left non-dominant side; I13.0 Hypertensive heart and chronic kidney disease with heart failure and stage 1 through stage 4 chronic kidney disease, or unspecified chronic kidney disease; I69.320 Aphasia following cerebral infarction; F17.210 Nicotine dependence, cigarettes, uncomplicated; N18.9 Chronic kidney disease, unspecified; I16.0 Hypertensive urgency; E78.5 Hyperlipidemia, unspecified; K21.9 Gastro-esophageal reflux disease without esophagitis; R53.81 Other malaise; Z23 Encounter for immunization; F29 Unspecified psychosis not due to a substance or known physiological condition; Z79.82 Long term (current) use of aspirin
CPT/HCPCS: 33208; 36415; 71045; 80053; 80061; 81001; 82550; 82553; 83735; 83880; 84443; 84484; 85025; 85610; 85730; 90732; 93005; 93306; 93880; 97139; 99284; C1785; J0360; J2250; J3370; J7030

== ENCOUNTER 2019-04-11 09:35 | Outpatient (RCR) | payer MEDICARE ==
[~2019-04-11 09:35] MED LIST changes: +ABILIFY5 MG PO; +ASPIRIN EC81 MG PO; -BELLADONNA/OPIUM 30 MG SUPP RC ONE; +BENICAR20 MG PO; +COREG12.5 MG PO; +CYPROHEPTADINE H4 MG; +NORVASC10 MG PO; +PRAVASTATIN SOD40 MG PO; +SODIUM CHLORIDE 0.9% 250ML 250 ML ONE; +SODIUM CHLORIDE 0.9% 500ML 500 ML ONE
== END 2019-04-23 ==
LOC: ST 09:35
PROVIDERS: ATTEND Internal Medicine
DX: I69.920 Aphasia following unspecified cerebrovascular disease (principal); R13.11 Dysphagia, oral phase
CPT/HCPCS: 92507; 92523; 92526; J7040; J7050

== ENCOUNTER 2019-05-23 10:30 | Outpatient (RCR) | payer MEDICARE ==
[~2019-05-23 10:30] MED LIST changes: -SODIUM CHLORIDE 0.9% 250ML 250 ML ONE; -SODIUM CHLORIDE 0.9% 500ML 500 ML ONE
== END 2019-05-24 ==
LOC: ST 10:30
PROVIDERS: ATTEND Internal Medicine
DX: I69.820 Aphasia following other cerebrovascular disease (principal); R47.1 Dysarthria and anarthria

== ENCOUNTER 2019-06-23 11:00 | Outpatient (RCR) | payer MEDICARE ==
--- NOTE | 2019-06-23 12:16 | NUR ---
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 1.Pt will perform diodochokinetic exercises 25 times in 15 secondspt completed an average of 16 sequences in 15 seconds. Improved from 6 repetitions in first session- Goal plateau 2.Pt will participate in speech motor exercises with 90% accuracypt completed motor speech exercises levels 1-4, which included CV, CVCV, and VCV syllables, voiced and unvoiced consonants, with 90% accuracy. Pt completed level 5 exercises, which included 2 syllable VCCV, voiced and unvoiced consonants, with 90% accuracy. Pt completed level 6 and 7, which included three syllables CVCVCV, voiced and unvoiced consonants, with 65% accuracy (pt unable to progress past level 4 last session). Goal plateau 3.Pt will use dysarthria strategies in session and at home with independencereviewed SLEW strategies. Pt required minimal cueing to use strategies in structured conversation. Goal met 4.Pt will complete oral motor exercises to improve labial and lingual strength and coordination with independencept reported completion of home exercise program. Reviewed HEP. Goal met 5.Pt will perform CVCVCV tasks with 90% accuracyPt with 90% accuracy Goal met 6.Pt will perform /s/s-blends/th/ch/j/z/f/v/ target words and phrases with 90% accuracy concentrating on placement and accuracy- Pt with 90% accuracy in initial/medial/final single words. Goal met 7.Pt will complete differing stress patterns with 90% accuracyPt 100% accuracy Goal met 8.Pt will participate in continued dx/txno further dx recommended Goal met Pt reported that his friends and family members have commented on how much more clear his speech is during conversation. He feels that speech therapy has been very beneficial and can see how much stronger his oral and speech motor skills are. Pt agreed that his progress has plateaued and he will continue to use HEP at home. No further Speech therapy sessions recommended. Impression: Pts deficits persist, but with practice improvements are noted in oral motor coordination. Oral strength improved. Pts clarity and precision of articulation of spontaneous conversation continues to improve. Pt completed all tasks eagerly and showed high level of motivation to improve his communication skills. Education completed as indicated, with patient indicating understanding. Recommendation: No further Speech Therapy intervention recommended at this time. Vivian Thompson M.S. CCC-[employer]TER [employer] Date of Session: 06/23/19 Speech and Language Treatment and Discharge Summary Skilled time spent 30 minutes VALE GARCIA Motor Speech Level 5
== END 2019-06-24 ==
LOC: ST 11:00
PROVIDERS: ATTEND Internal Medicine
DX: I69.322 Dysarthria following cerebral infarction (principal); R47.01 Aphasia; R49.8 Other voice and resonance disorders